=== PATIENT | female | born 1965 | race Caucasian/White ===

== ENCOUNTER 2018-11-28 13:59 | Emergency (ER) | payer SELFPAY ==
[2018-11-28] MEDS ORDERED: HYDROCODONE/APAP 10/325 TAB ONE (16:36)
--- NOTE | 2018-11-28 17:22 | RAD REPORT ---
EXAM DESCRIPTION: CT - Thoracic Spine W/o Cont - 11/28/2018 5:09 pm CLINICAL HISTORY: Radiculopathy. PAIN COMPARISON: No comparisons TECHNIQUE: Axial CT imaging through the thoracic spine was performed with coronal and sagittal re-fo rmatted images. All CT scans are performed using dose optimization technique as appropriate and may include automated exposure control or mA/KV adjustment according to patient size. FINDINGS: Vertebral body heights and disc spaces are largely maintained. Midthoracic vertebral body is numbered T7 and T8 demonstrate in situ vertebroplasty cement. No acute compression fracture is not present. No significant disc space narrowing. Thoracic spine alignment is within normal limits. No paraspinal masses or hematoma. Small hiatal hernia. IMPRESSION: No acute thoracic spine abnormality is seen.
--- NOTE | 2018-11-28 17:31 | EDPHYS ---
Physician Documentation [facility] Name: Rachele Davis Age: 53 yrs Sex: Female : 1965 Arrival Date: 11/28/2018 Time: 14:02 Bed 26 Private MD: ED Physician Jayme Hutson HPI: 11/28 17:26 This 53 yrs old Female presents to ER via Ambulatory with complaints of Back gs Pain. 17:26 The patient presents with pain that is acute, and an injury. The symptoms are located gs in the thoracic area. Onset: The symptoms/episode began/occurred acutely, today. Associated signs and symptoms: Pertinent negatives: incontinence, numbness, urinary retention. Modifying factors: the patient symptoms are aggravated by any movement. Severity of symptoms: At their worst the symptoms were severe, in the emergency department the symptoms are unchanged. The patient has not experienced similar symptoms in the past. fell 4 feet while standing on counter hit back. 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 - Social history:: Smoking status: unknown. - Ebola Screening: : No symptoms or risks identified at this time. ROS: 17:26 All other systems are negative. gs Exam: 17:26 Head/Face: Normocephalic, atraumatic. Eyes: Pupils equal round and reactive to light, gs extra-ocular motions intact. Lids and lashes normal. Conjunctiva and sclera are non-icteric and not injected. Cornea within normal limits. Periorbital areas with no swelling, redness, or edema. ENT: Nares patent. No nasal discharge, no septal abnormalities noted. Tympanic membranes are normal and external auditory canals are clear. Oropharynx with no redness, swelling, or masses, exudates, or evidence of obstruction, uvula midline. Mucous membranes moist. Neck: Trachea midline, no thyromegaly or masses palpated, and no cervical lymphadenopathy. Supple, full range of motion without nuchal rigidity, or vertebral point tenderness. No Meningismus. Chest/axilla: Normal chest wall appearance and motion. Nontender with no deformity. No lesions are appreciated. Cardiovascular: Regular rate and rhythm with a normal S1 and S2. No gallops, murmurs, or rubs. Normal PMI, no JVD. No pulse deficits. Respiratory: Lungs have equal breath sounds bilaterally, clear to auscultation and percussion. No rales, rhonchi or wheezes noted. No increased work of breathing, no retractions or nasal flaring. Abdomen/GI: Soft, non-tender, with normal bowel sounds. No distension or tympany. No guarding or rebound. No evidence of tenderness throughout. Skin: Warm, dry with normal turgor. Normal color with no rashes, no lesions, and no evidence of cellulitis. MS/ Extremity: Pulses equal, no cyanosis. Neurovascular intact. Full, normal range of motion. Neuro: Awake and alert, GCS 15, oriented to person, place, time, and situation. Cranial nerves II-XII grossly intact. Motor strength 5/5 in all extremities. Sensory grossly intact. Cerebellar exam normal. Normal gait. 17:26 Constitutional: The patient appears alert, awake. 17:26 Back: vertebral tenderness, is appreciated at T8, T9 and T10. Vital Signs: 14:06 BP 129 / 83; Pulse 90; Resp 20; Temp 98; Pulse Ox 100% ; Weight 111.13 kg; Height 5 ft. sv 9 in. (175.26 cm); Pain 8/10; 17:52 BP 122 / 78; Pulse 80; Resp 18; Pulse Ox 100% on R/A; Pain 3/10; mg2 14:06 Body Mass Index 36.18 (111.13 kg, 175.26 cm) sv MDM: 15:54 Patient medically screened. 17:26 Differential diagnosis: Fatigue Fracture Ligament Injury. Data reviewed: vital signs, gs nurses notes, radiologic studies. Counseling: I had a detailed discussion with the patient and/or guardian regarding: the historical points, exam findings, and any diagnostic results supporting the discharge/admit diagnosis, radiology results, the need for outpatient follow up. Response to treatment: the patient's symptoms have mildly improved after treatment, and as a result, I will discharge patient. 11/28 15:54 Order name: CT Thoracic Spine Wo Cont; Complete Time: 17:25 gs Administered Medications: 16:27 Drug: [place] 10 mg-325 mg 1 tabs Route: PO; mg2 16:56 Follow up: Response: No adverse reaction; Marked relief of symptoms mg2 Disposition: 11/28/18 17:29 Discharged to Home. Impression: Contusion of left back wall of thorax. - Condition is Stable. - Discharge Instructions: Contusion. - Prescriptions for Tramadol 50 mg Oral Tablet - take 1 tablet by ORAL route every 8 hours as needed; 10 tablet. - Medication Reconciliation Form, Thank You Letter, Antibiotic Education, Prescription Opioid Use form. - Follow up: Private Physician; When: 2 - 3 days; Reason: Re-evaluation by your physician. Signatures: Dispatcher [employer] Wendi Murphy RN RN Jayme Hutson MD MD Agustín Wray RN RN mg2 Corrections: (The following items were deleted from the chart) 17:53 17:29 11/28/2018 17:29 Discharged to Home. Impression: Contusion of left back wall of mg2 thorax. Condition is Stable. Forms are Medication Reconciliation Form, Thank You Letter, Antibiotic Education, Prescription Opioid Use. Follow up: Private Physician; When: 2 - 3 days; Reason: Re-evaluation by your physician.
--- NOTE | 2018-11-28 17:31 | ER ---
Nurse's Notes [facility] Name: Rachele Davis Age: 53 yrs Sex: Female : 1965 Arrival Date: 11/28/2018 Time: 14:02 Bed 26 Private MD: Diagnosis: Contusion of left back wall of thorax Presentation: 11/28 14:04 Presenting complaint: Patient states: mid back pain after falling onto her buttocks sv today after being on top of a counter. States "It feels like an electric shock going through my back." Hx of back sx a month ago. Transition of care: patient was not received from another setting of care. Onset of symptoms was November 28, 2018. Care prior to arrival: None. 14:04 Method Of Arrival: Ambulatory sv 14:04 Acuity: JULITA 3 sv 15:34 Risk Assessment: Do you want to hurt yourself or someone else? Patient reports no mg2 desire to harm self or others. Initial Sepsis Screen: Does the patient meet any 2 criteria? No. Patient's initial sepsis screen is negative. Does the patient have a suspected source of infection? No. Patient's initial sepsis screen is negative. Triage Assessment: 14:04 General: Appears in no apparent distress. uncomfortable, well developed, Behavior is sv calm, cooperative, appropriate for age. Pain: Complains of pain in mid back area Pain currently is 8 out of 10 on a pain scale. Neuro: Level of Consciousness is awake, alert, obeys commands, Oriented to person, place, time, situation, Moves all extremities. Full function Gait is steady. Respiratory: Respiratory effort is even, unlabored, Respiratory pattern is regular, symmetrical. Musculoskeletal: Range of motion: intact in all extremities. 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 - Social history:: Smoking status: unknown. - Ebola Screening: : No symptoms or risks identified at this time. Screenin:31 Abuse screen: Denies threats or abuse. Denies injuries from another. Nutritional mg2 screening: No deficits noted. Tuberculosis screening: No symptoms or risk factors identified. Fall Risk Fall in past 12 months (25 points). Assessment: 15:32 General: Appears in no apparent distress. uncomfortable, Behavior is calm, cooperative. mg2 Pain: Complains of pain in back and mid back area Pain does not radiate. Pain currently is 7 out of 10 on a pain scale. Quality of pain is described as aching, Pain began suddenly, Is intermittent, Aggravated by increased activity, repositioning. Neuro: Level of Consciousness is awake, alert, obeys commands, Oriented to person, place, time, situation. Cardiovascular: Capillary refill < 3 seconds Patient's skin is warm and dry. Respiratory: Airway is patent Respiratory effort is even, unlabored, Respiratory pattern is regular, symmetrical. GI: No signs and/or symptoms were reported involving the gastrointestinal system. : No signs and/or symptoms were reported regarding the genitourinary system. EENT: No signs and/or symptoms were reported regarding the EENT system. Derm: Skin is intact, is healthy with good turgor, Skin is pink, warm \\T\\ dry. normal. Musculoskeletal: Circulation, motion, and sensation intact. Capillary refill < 3 seconds, Reports pain in mid back area. 17:51 Reassessment: Patient states feeling better. Patient states symptoms have improved. mg2 Vital Signs: 14:06 BP 129 / 83; Pulse 90; Resp 20; Temp 98; Pulse Ox 100% ; Weight 111.13 kg; Height 5 ft. sv 9 in. (175.26 cm); Pain 8/10; 17:52 BP 122 / 78; Pulse 80; Resp 18; Pulse Ox 100% on R/A; Pain 3/10; mg2 14:06 Body Mass Index 36.18 (111.13 kg, 175.26 cm) sv ED Course: 14:02 Patient arrived in ED. mr 14:05 Triage completed. sv 14:06 Arm band placed on. sv 14:58 Jayme Hutson MD is Attending Physician. gs 15:13 Agustín Wray RN is Primary Nurse. mg2 15:34 Patient has correct armband on for positive identification. mg2 15:34 No provider procedures requiring assistance completed. Patient did not have IV access mg2 during this emergency room visit. 17:10 CT Thoracic Spine Wo Cont In Process Unspecified. EDMS Administered Medications: 16:27 Drug: [place] 10 mg-325 mg 1 tabs Route: PO; mg2 16:56 Follow up: Response: No adverse reaction; Marked relief of symptoms mg2 Outcome: 17:29 Discharge ordered by . ganesh 17:52 Discharged to home ambulatory. mg2 17:52 Condition: stable 17:52 Discharge instructions given to patient, Instructed on discharge instructions, follow up and referral plans. medication usage, Demonstrated understanding of instructions, follow-up care, medications, Prescriptions given X 1. 17:53 Patient left the ED. mg2 Signatures: Dispatcher [employer] Wendi Murphy RN RN Meghna Ford Gregory, MD MD gs [place]ose, Michele, RN RN mg2
== END 2018-11-28 17:53 | disposition home or self-care (01) ==
LOC: ER 13:59
DX: S20.222A Contusion of left back wall of thorax, initial encounter (principal); W19.XXXA Unspecified fall, initial encounter; Y93.89 Activity, other specified; Y92.9 Unspecified place or not applicable; Z88.5 Allergy status to narcotic agent; Z88.6 Allergy status to analgesic agent
CPT/HCPCS: 72128; 99283

== ENCOUNTER 2018-12-12 12:05 | Emergency (ER) | payer SELFPAY ==
--- NOTE | 2018-12-12 13:06 | ER ---
Nurse's Notes [facility] Name: Rachele Davis Age: 53 yrs Sex: Female : 1965 Arrival Date: 12/12/2018 Time: 12:07 Bed 6 Private MD: Diagnosis: Encounter for screening, unspecified Presentation: 12/12 12:11 Presenting complaint: Patient states: sharp, "electrical" pain to R buttock that ss radiates down R leg x "a few days". Pt was seen in er on 11/28 for same pain, but reports the pain is worse and was told to come back to the ER for further evaluation. Transition of care: patient was not received from another setting of care. Onset of symptoms was December 09, 2018. Risk Assessment: Do you want to hurt yourself or someone else? Patient reports no desire to harm self or others. Initial Sepsis Screen: Does the patient meet any 2 criteria? No. Patient's initial sepsis screen is negative. Does the patient have a suspected source of infection? No. Patient's initial sepsis screen is negative. Care prior to arrival: None. 12:11 Method Of Arrival: Ambulatory ss 12:11 Acuity: JULITA 4 ss Historical: - Allergies: 12:14 Codeine; ss 12:14 NSAIDS; ss - PSHx: 12:14 Back; Gastric Bypass; Cholecystectomy; R arm repair; L leg repair; ss - Immunization history:: Adult Immunizations up to date. - Social history:: Smoking status: Patient/guardian denies using tobacco. - Ebola Screening: : Patient denies exposure to infectious person Patient denies travel to an Ebola-affected area in the 21 days before illness onset. Screenin:42 Abuse screen: Denies threats or abuse. Denies injuries from another. Nutritional hb screening: No deficits noted. Tuberculosis screening: No symptoms or risk factors identified. Fall Risk None identified. Assessment: 12:42 General: Appears in no apparent distress. Behavior is calm, cooperative. Pain: Pain hb currently is 9 out of 10 on a pain scale. Neuro: Level of Consciousness is awake, alert, obeys commands, Oriented to person, place, time, situation. Cardiovascular: Capillary refill < 3 seconds Patient's skin is warm and dry. Respiratory: Airway is patent Respiratory effort is even, unlabored, Respiratory pattern is regular, symmetrical. GI: No signs and/or symptoms were reported involving the gastrointestinal system. : No signs and/or symptoms were reported regarding the genitourinary system. EENT: No signs and/or symptoms were reported regarding the EENT system. Derm: Skin is intact, is healthy with good turgor. Musculoskeletal: Reports low back pain. Vital Signs: 12:14 BP 124 / 89; Pulse 75; Resp 16; Temp 98.5(TE); Pulse Ox 100% on R/A; Weight 108.86 kg; ss Height 5 ft. 9 in. (175.26 cm); Pain 9/10; 12:14 Body Mass Index 35.44 (108.86 kg, 175.26 cm) ss ED Course: 12:07 Patient arrived in ED. as 12:12 Triage completed. ss 12:14 Arm band placed on right wrist. ss 12:26 Angel Cornelius MD is Attending Physician. ps1 12:28 Attending Physician role handed off by Angel Cornelius MD 12:28 Jayme Hutson MD is Attending Physician. 12:41 Roxi Powell RN is Primary Nurse. hb 12:42 Patient has correct armband on for positive identification. Bed in low position. Call hb light in reach. 13:11 No provider procedures requiring assistance completed. Patient did not have IV access sv during this emergency room visit. Administered Medications: No medications were administered Outcome: 13:06 Discharge ordered by . gs 13:12 Medical screen evaluation completed per provider. Patient declined treatment. sv 13:12 Condition: stable 13:12 Following a medical screening exam, the patient was provided information regarding alternative care sites and resources available per registration personnel. 13:12 Patient left the ED. sv Signatures: Wendi Grissom RN RN Yasmin Richardson Shelby, RN RN Roxi Powell RN RN Jayme Hutson MD MD Angel Cornelius MD MD ps1 Corrections: (The following items were deleted from the chart) 12:13 12:11 Presenting complaint: Patient states: sharp, "electrical" pain to R buttock that ss radiates down R leg x "a few days". ss 12:13 12:11 Note Pt reports she was seen in ER recently for a fall, and reports that this ss pain has been increasing ever since. ss 12:15 12:14 BP 124 / 89; Pulse 15bpm; Resp 16bpm; Pulse Ox 100% RA; Temp 98.5F Temporal; ss 108.86 kg; Height 5 ft. 9 in.; BMI: 35.4; Pain 9/10; ss
--- NOTE | 2018-12-12 13:07 | EDPHYS ---
Physician Documentation [facility] Name: Rachele Davis Age: 53 yrs Sex: Female : 1965 Arrival Date: 12/12/2018 Time: 12:07 Bed 6 Private MD: ED Physician Jayme Hutson HPI: 12/12 13:02 This 53 yrs old Female presents to ER via Ambulatory with complaints of Low gs Back Pain, Leg Pain. 13:02 The patient presents with pain that is acute, and an injury. The symptoms are located gs in the low back. The pain radiates to the lateral aspect of right thigh. Onset: The symptoms/episode began/occurred 1 week(s) ago. Associated signs and symptoms: Pertinent negatives: incontinence, numbness, urinary retention. Severity of symptoms: At their worst the symptoms were moderate, in the emergency department the symptoms are unchanged. The patient has experienced similar episodes in the past, a few times. The patient has been recently seen at the [facility] Emergency Department, a couple of weeks ago, for similar complaints CT scan was performed. Historical: - Allergies: 12:14 Codeine; ss 12:14 NSAIDS; ss - PSHx: 12:14 Back; Gastric Bypass; Cholecystectomy; R arm repair; L leg repair; ss - Immunization history:: Adult Immunizations up to date. - Social history:: Smoking status: Patient/guardian denies using tobacco. - Ebola Screening: : Patient denies exposure to infectious person Patient denies travel to an Ebola-affected area in the 21 days before illness onset. ROS: 13:02 All other systems are negative. gs Exam: 13:02 Head/Face: Normocephalic, atraumatic. Eyes: Pupils equal round and reactive to light, gs extra-ocular motions intact. Lids and lashes normal. Conjunctiva and sclera are non-icteric and not injected. Cornea within normal limits. Periorbital areas with no swelling, redness, or edema. ENT: Nares patent. No nasal discharge, no septal abnormalities noted. Tympanic membranes are normal and external auditory canals are clear. Oropharynx with no redness, swelling, or masses, exudates, or evidence of obstruction, uvula midline. Mucous membranes moist. Neck: Trachea midline, no thyromegaly or masses palpated, and no cervical lymphadenopathy. Supple, full range of motion without nuchal rigidity, or vertebral point tenderness. No Meningismus. Chest/axilla: Normal chest wall appearance and motion. Nontender with no deformity. No lesions are appreciated. Cardiovascular: Regular rate and rhythm with a normal S1 and S2. No gallops, murmurs, or rubs. Normal PMI, no JVD. No pulse deficits. Respiratory: Lungs have equal breath sounds bilaterally, clear to auscultation and percussion. No rales, rhonchi or wheezes noted. No increased work of breathing, no retractions or nasal flaring. Abdomen/GI: Soft, non-tender, with normal bowel sounds. No distension or tympany. No guarding or rebound. No evidence of tenderness throughout. Neuro: Awake and alert, GCS 15, oriented to person, place, time, and situation. Cranial nerves II-XII grossly intact. Motor strength 5/5 in all extremities. Sensory grossly intact. Cerebellar exam normal. Normal gait. 13:02 Skin: Warm, dry with normal turgor. Normal color with no rashes, no lesions, and no evidence of cellulitis. MS/ Extremity: Pulses equal, no cyanosis. Neurovascular intact. Full, normal range of motion. 13:02 Constitutional: The patient appears alert, awake. 13:02 Back: pain, that is mild, of the right low back. 13:02 Neuro: Deep tendon reflexes are normal. Vital Signs: 12:14 BP 124 / 89; Pulse 75; Resp 16; Temp 98.5(TE); Pulse Ox 100% on R/A; Weight 108.86 kg; ss Height 5 ft. 9 in. (175.26 cm); Pain 9/10; 12:14 Body Mass Index 35.44 (108.86 kg, 175.26 cm) ss MDM: 12:28 Patient medically screened. 13:02 Differential diagnosis: arthritis, strain, sciatica. Data reviewed: vital signs, nurses gs notes. Counseling: I had a detailed discussion with the patient and/or guardian regarding: the historical points, exam findings, and any diagnostic results supporting the discharge/admit diagnosis, the need for outpatient follow up. Medical screen evaluation completed. EMTALA emergency medical condition absent. Response to treatment: There is no appreciated change of the patient's symptoms at this time. 13:02 Data reviewed: old medical records. gs Administered Medications: No medications were administered Disposition: 12/12/18 13:06 Discharged to Home. Impression: Encounter for screening, unspecified. - Condition is Stable. - Medication Reconciliation Form, Thank You Letter, Antibiotic Education, Prescription Opioid Use form. - Follow up: Private Physician; When: 2 - 3 days; Reason: Re-evaluation by your physician. Signatures: Wendi Grissom RN RN sv Smirch, Shelby, RN RN ss Starr, Gregory, MD MD gs Corrections: (The following items were deleted from the chart) 13:12 13:06 12/12/2018 13:06 Discharged to Home. Impression: Encounter for screening, sv unspecified. Condition is Stable. Forms are Medication Reconciliation Form, Thank You Letter, Antibiotic Education, Prescription Opioid Use. Follow up: Private Physician; When: 2 - 3 days; Reason: Re-evaluation by your physician. gs
== END 2018-12-12 13:12 | disposition home or self-care (01) ==
LOC: ER 12:05
DX: Z13.9 Encounter for screening, unspecified (principal); Z88.5 Allergy status to narcotic agent; Z88.6 Allergy status to analgesic agent
CPT/HCPCS: 99281

== ENCOUNTER 2019-05-28 12:05 | Emergency (ER) | payer SELFPAY ==
[2019-05-28] MEDS ORDERED: HYDROCODONE/APAP 10/325 TAB ONE (13:11)
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
[2019-05-28 14:59] VITALS: BP 153/100; TEMP 97.6; O2SAT 99
== END 2019-05-28 14:48 | disposition home or self-care (01) ==
LOC: ER 12:05
DX: S20.211A Contusion of right front wall of thorax, initial encounter (principal); V43.62XA Car passenger injured in collision with other type car in traffic accident, initial encounter; Y93.89 Activity, other specified; Y92.410 Unspecified street and highway as the place of occurrence of the external cause; Z88.6 Allergy status to analgesic agent
CPT/HCPCS: 99284